=== PATIENT | female | born 1995 | race Caucasian/White ===

== ENCOUNTER 2020-09-28 15:40 | Emergency (ER) | payer OTHER ==
[~2020-09-28] VITALS: Ht 165.1 cm; Wt 74.8 kg
[2020-09-28] MEDS ORDERED: IBUPROFEN 200 MG TAB PO ONE (15:45)
[2020-09-28] MEDS ORDERED: BACITRACIN ZINC 0.9GM TP ONE (15:45)
[2020-09-28] MEDS ORDERED: LIDOCAINE HCL 2% LOCAL 20 ML VIAL INJ ONE (15:45)
[2020-09-28] MEDS ORDERED: IBUPROFEN IB200 MG PO (15:48)
[2020-09-28] MEDS ORDERED: CLEOCIN HCL300 MG PO (15:48)
== END 2020-09-28 16:53 | disposition home or self-care (01) ==
LOC: FSED 15:45
DX: S61.210A Laceration without foreign body of right index finger without damage to nail, initial encounter (principal); W26.8XXA Contact with other sharp object(s), not elsewhere classified, initial encounter; Y92.000 Kitchen of unspecified non-institutional (private) residence as the place of occurrence of the external cause
CPT/HCPCS: 99283

== ENCOUNTER 2021-07-30 13:42 | Emergency (ER) | payer OTHER ==
[~2021-07-30] VITALS: Ht 165.1 cm; Wt 74.8 kg
[~2021-07-30 13:42] MED LIST: CLEOCIN HCL300 MG PO; IBUPROFEN IB200 MG PO
[2021-07-30 14:29] LABS: CLARITY,URINE TURBID (CLEAR); COLOR,URINE YELLOW (YELLOW); KETONES,URINE NEGATIVE (NEGATIVE); LEUKOCYTE ESTERASE ,URINE SMALL (NEGATIVE); NITRITE,URINE POSITIVE (NEGATIVE); PROTEIN,URINE DIPSTICK NEGATIVE (NEGATIVE)
[2021-07-30 14:30] LABS: URINE UROBILINOGEN 0.2 mg/dL (0.2 - 1)
[2021-07-30 14:33] LABS: BACTERIA,URINE MANY /HPF; EPITHELIAL CELLS,URINE MANY /LPF; WBC,URINE (MAN) >50 /HPF (0-5)
[2021-07-30] MEDS ORDERED: CEPHALEXIN500 MG PO (14:39)
[2021-07-30] MEDS ORDERED: AZO URINARY P99.5 MG PO (14:40)
== END 2021-07-30 14:54 | disposition home or self-care (01) ==
LOC: ER 13:52
DX: R39.89 Other symptoms and signs involving the genitourinary system (principal); N30.10 Interstitial cystitis (chronic) without hematuria
CPT/HCPCS: 81001; 81025; 99282